=== PATIENT | female | born 2000 | race Caucasian/White ===

== ENCOUNTER 2022-05-29 16:45 | Emergency (ER) | payer OTHER ==
[2022-05-29] MEDS ORDERED: Sodium Chloride 0.9% 1,000 ML IV ONE (17:04)
[2022-05-29] MEDS ORDERED: fentaNYL 100 MCG/2 ML SDV IVPUSH ONE (17:05)
[2022-05-29 17:28] LABS: ESTIMATED GFR 92 mL/min (>60)
[2022-05-29] MEDS ORDERED: Ondansetron 4 MG/2 ML SDV IVPUSH ONE (17:54)
[2022-05-29] MEDS ORDERED: HYDROmorphone 1 MG/ML Syringe IVPUSH ONE (17:54)
== END 2022-05-29 19:30 | disposition home or self-care (01) ==
LOC: JD.ED 16:45
DX: S16.1XXA Strain of muscle, fascia and tendon at neck level, initial encounter (principal); Z91.040 Latex allergy status; Z86.16 Personal history of COVID-19; V49.49XA Driver injured in collision with other motor vehicles in traffic accident, initial encounter; Y92.410 Unspecified street and highway as the place of occurrence of the external cause
CPT/HCPCS: 36415; 70450; 71045; 72125; 72170; 80053; 80307; 85007; 85027; 96361; 96374; 96375; 99284; J1170; J2405; J3010; J7030; 99283

== ENCOUNTER 2024-05-29 11:40 | Emergency (ER) | payer BC, OTHER ==
[2024-05-29] MEDS: Sodium Chloride 0.9% 1,000 ML IV SCH (13:00)
[2024-05-29 13:11] LABS: BASOPHILS PERCENT AUTO 0.3 % (0.0-1.0); EOSINOPHILS ABSOLUTE AUTO 0.1 K/mm3 (0.0-0.4); IMMATURE GRAN ABSOLUTE AUTO 0.01 K/mm3 (0.00-0.05); IMMATURE GRAN PERCENT AUTO 0.1 % (0.0-0.4); LYMPHOCYTES ABSOLUTE AUTO 1.9 K/mm3 (1.0-4.8); LYMPHOCYTES PERCENT AUTO 22.1 % (24.0-44.0); MEAN CORPUSCULAR HEMOGLOBIN 28.9 pg (28.0-32.0); MEAN CORPUSCULAR HGB CONC 34.1 g/dl (32.0-36.0); MEAN CORPUSCULAR VOLUME 84.5 fl (83.0-99.0); MEAN PLATELET VOLUME 10.2 fl (9.4-12.3); MONOCYTES ABSOLUTE AUTO 0.7 K/mm3 (0.0-0.8); MONOCYTES PERCENT AUTO 8.1 % (0.0-8.0); NEUTROPHILS ABSOLUTE AUTO 5.9 K/mm3 (1.8-7.7); NEUTROPHILS PERCENT AUTO 68.4 % (41.0-71.0); PLATELET COUNT,PLT 382 K/mm3 (150-400); RED BLOOD CELL COUNT 4.85 M/mm3 (4.10-5.30); WHITE BLOOD CELL COUNT,WBC 8.69 K/mm3 (3.9-11.3)
[2024-05-29] MEDS: Sodium Chloride 0.9% 10 ML Syringe FLUSH PRN (13:45)
[2024-05-29 13:48] LABS: A/G RATIO 1.4 (1-2); ALANINE AMINOTRANSFERASE,ALT 43 U/L (14-59); ALBUMIN 4.4 g/dl (3.4-5.0); ALKALINE PHOSPHATASE 87 U/L (46-116); ANION GAP 16.6 (5-15); ASPARTATE AMNIOTRANSFERASE,AST 26 U/L (15-37); BILIRUBIN TOTAL 0.7 mg/dL (0.2-1.0); BLOOD UREA NITROGEN,BUN 9 mg/dL (7-18); BUN/CREATININE RATIO 11.3 (14-18); CALCIUM 9.2 mg/dL (8.5-10.1); CARBON DIOXIDE,CO2 23 mEq/L (21-32); CHLORIDE,CL 106 mEq/L (98-107); CREATININE 0.8 mg/dL (0.55-1.02); EST CRCL DRUG DOSING (CG) 85.02 mL/min; ESTIMATED GFR 105 mL/min (>60); GLUCOSE RANDOM 82 mg/dL (70-99); MAGNESIUM 1.7 mg/dL (1.8-2.4); POTASSIUM,K 3.6 mEq/L (3.5-5.1); PROTEIN TOTAL,TP 7.5 g/dl (6.4-8.2); SODIUM,NA 142 mEq/L (136-145); TSH 0.751 uIU/mL (0.358-3.74)
[2024-05-29 13:49] LABS: TROPONIN I HIGH SENSITIVITY < 4 pg/mL (<=51)
[2024-05-29] MEDS: Ondansetron 4 MG/2 ML SDV IVPUSH ONE (15:07)
[2024-05-29] MEDS: Meclizine 25 MG Tab PO ONE (15:07)
== END 2024-05-29 16:18 | disposition home or self-care (01) ==
LOC: JD.ED 11:40
DX: R55 Syncope and collapse (principal); R00.2 Palpitations; R42 Dizziness and giddiness; Z91.048 Other nonmedicinal substance allergy status; Z91.040 Latex allergy status; Z79.899 Other long term (current) drug therapy; Z86.16 Personal history of COVID-19
CPT/HCPCS: 36415; 71045; 80053; 83735; 84443; 84484; 84703; 85025; 93005; 96361; 96374; 99285; A9270; J2405; J3490; J7030; 93010; 99284

== ENCOUNTER 2025-01-27 16:27 | Emergency (ER) | payer BC, OTHER ==
[2025-01-27 17:04] LABS: BASOPHILS PERCENT AUTO 0.4 % (0.0-1.0); EOSINOPHILS ABSOLUTE AUTO 0.1 K/mm3 (0.0-0.4); EOSINOPHILS PERCENT AUTO 0.8 % (0.0-6.0); HEMATOCRIT 39.5 % (37.0-47.0); HEMOGLOBIN 13.1 gm/dl (12.0-16.0); IMMATURE GRAN ABSOLUTE AUTO 0.02 K/mm3 (0.00-0.05); IMMATURE GRAN PERCENT AUTO 0.2 % (0.0-0.4); LYMPHOCYTES ABSOLUTE AUTO 2.1 K/mm3 (1.0-4.8); LYMPHOCYTES PERCENT AUTO 24.3 % (24.0-44.0); MEAN CORPUSCULAR HEMOGLOBIN 28.5 pg (28.0-32.0); MEAN CORPUSCULAR HGB CONC 33.2 g/dl (32.0-36.0); MEAN CORPUSCULAR VOLUME 86.1 fl (83.0-99.0); MEAN PLATELET VOLUME 10.1 fl (9.4-12.3); MONOCYTES ABSOLUTE AUTO 0.7 K/mm3 (0.0-0.8); MONOCYTES PERCENT AUTO 8.2 % (0.0-8.0); NEUTROPHILS ABSOLUTE AUTO 5.6 K/mm3 (1.8-7.7); NEUTROPHILS PERCENT AUTO 66.1 % (41.0-71.0); PLATELET COUNT,PLT 381 K/mm3 (150-400); RED BLOOD CELL COUNT 4.59 M/mm3 (4.10-5.30); WHITE BLOOD CELL COUNT,WBC 8.49 K/mm3 (3.9-11.3)
[2025-01-27] MEDS: Sodium Chloride 0.9% 1,000 ML IV ONE (17:19)
[2025-01-27 17:42] LABS: A/G RATIO 1.3 (1-2); ALANINE AMINOTRANSFERASE,ALT 29 U/L (14-59); ALBUMIN 4.1 g/dl (3.4-5.0); ALKALINE PHOSPHATASE 86 U/L (46-116); ASPARTATE AMNIOTRANSFERASE,AST 24 U/L (15-37); BILIRUBIN TOTAL 0.4 mg/dL (0.2-1.0); BLOOD UREA NITROGEN,BUN 5 mg/dL (7-18); BUN/CREATININE RATIO 6.3 (14-18); CALCIUM 9.4 mg/dL (8.5-10.1); CARBON DIOXIDE,CO2 25 mEq/L (21-32); CHLORIDE,CL 107 mEq/L (98-107); CREATININE 0.8 mg/dL (0.55-1.02); EST CRCL DRUG DOSING (CG) 84.28 mL/min; ESTIMATED GFR 104 mL/min (>60); GLUCOSE RANDOM 92 mg/dL (70-99); MAGNESIUM 1.8 mg/dL (1.8-2.4); PROTEIN TOTAL,TP 7.2 g/dl (6.4-8.2); SODIUM,NA 141 mEq/L (136-145)
[2025-01-27 17:54] LABS: TROPONIN I HIGH SENSITIVITY < 4 pg/mL (<=51)
[2025-01-27 18:14] LABS: TSH 0.594 uIU/mL (0.358-3.74)
[2025-01-27] MEDS: Loratadine 10 MG Tab PO ONE (18:54)
== END 2025-01-27 18:54 | disposition home or self-care (01) ==
LOC: JD.ED 16:27
DX: R55 Syncope and collapse (principal); Z86.16 Personal history of COVID-19; Z90.49 Acquired absence of other specified parts of digestive tract; Z79.899 Other long term (current) drug therapy; Z91.048 Other nonmedicinal substance allergy status; Z91.040 Latex allergy status; Z91.030 Bee allergy status
CPT/HCPCS: 36415; 80053; 83735; 84443; 84484; 85025; 93005; 96360; 99284; A9270; J7030; 93010